=== PATIENT | male | born 1955 | race Two or more races ===

== ENCOUNTER 2018-09-28 11:57 | Inpatient (IN) | payer OTHER ==
[~2018-09-28] VITALS: Ht 167.6 cm; Wt 90.3 kg
[2018-09-28] MEDS ORDERED: SODIUM CHLORIDE 0.9% 1,000 ML IV ONE (12:27)
[2018-09-28] MEDS ORDERED: NALOXONE HCL 1 MG/ML 2ML VIAL IV ONE (12:30)
[2018-09-28 12:47] LABS: BASOPHILS % 0.4 % (0.0-2.0); EOSINOPHILS % 0.6 % (0.0-5.0); HEMATOCRIT. 37.4 % (42.0-52.0); HEMOGLOBIN. 12.6 g/dL (14.0-18.0); LYMPHOCYTES % 18.7 % (20.0-50.0); MEAN CORPUSCULAR HEMOGLOBIN 34.3 pg (28.0-32.0); MEAN CORPUSCULAR VOLUME 101.7 fL (80.0-94.0); MEAN PLATELET VOLUME 7.8 fl (7.4-10.4); MONOCYTES % 8.5 % (2.0-8.0); NEUTROPHILS % 71.8 % (40.0-76.0); PLATELET 242 x1000/uL (130-400); RED BLOOD CELL COUNT 3.68 mill/uL (4.7-6.1); RED CELL DISTRIBUTION WIDTH 13.2 % (11.6-14.6)
[2018-09-28 12:56] LABS: INR 1.1; PARTIAL THROMBOPLASTIN TIME 24.3 sec (23.4-31.0); PROTHROMBIN TIME 11.4 sec (9.1-11.1)
[2018-09-28 12:58] LABS: CHLORIDE 102 mEq/L (98-107)
[2018-09-28 13:02] LABS: ETHANOL BLOOD 23 mg/dL
[2018-09-28 13:05] LABS: LDL CHOLESTEROL 119 mg/dL (5-100)
[2018-09-28 13:18] LABS: CREATINE KINASE 2865 IU/L (39-308)
[2018-09-28 13:34] LABS: BG BASE EXCESS -3.3 mmol/L (-2.0-2.0); BG CARBOXYHEMOGLOBIN 0.8 % (0.5-1.5); BG DEOXYHEMOGLOBIN 1.8 % (0.0-5.0); BG FRACTION INSPIRED OXYGEN 36; BG HCO3 ACT 20.1 mmol/L (22.0-26.0); BG METHEMOGLOBIN 0.3 % (0.0-1.5); BG OXYGEN SATURATION 98.2 % (92.0-98.5); BG OXYHEMOGLOBIN 97.1 % (94.0-97.0); BG PCO2 31.2 mmHg (35.0-45.0); BG PH 7.426 (7.350-7.450); BG PO2 110.7 mmHg (75.0-100.0); BG SAMPLE SITE RIGHT BRACHIAL; BG TOTAL HEMOGLOBIN 12.9 g/dL (12.0-18.0); BG VENT MODE NASAL CANNULA
[2018-09-28] MEDS ORDERED: FOLIC ACID 1 MG, THIAMINE HCL 100 MG, MVI, ADULT NO.1 10 ML in DEXTROSE 5% WATER 1,000 ML IV ONE ×4 (14:15)
[2018-09-28] MEDS ORDERED: THIAMINE HCL 100MG TABLET PO NR (15:00)
[2018-09-28] MEDS ORDERED: FOLIC ACID 1 MG, MVI, ADULT NO.1 10 ML in DEXTROSE 5% WATER 1,000 ML IV NR ×3 (15:00)
[2018-09-28] MEDS ORDERED: DOCUSATE SODIUM 100MG CAPSULE PO PRN (16:15)
[2018-09-28] MEDS ORDERED: MAGNESIUM/ALUMINUM HYDROXIDE/SIMETHICONE 30ML UDC PO PRN (16:15)
[2018-09-28] MEDS ORDERED: CLONIDINE 0.1MG TABLET PO PRN (16:15)
[2018-09-28] MEDS ORDERED: ONDANSETRON HCL 4MG/2ML INJ IV PRN (16:15)
[2018-09-28 17:05] LABS: CLARITY URINE CLEAR (CLEAR); COLOR URINE YELLOW (YELLOW); KETONES URINE NEGATIVE (NEGATIVE); LEUKOCYTE ESTERASE URINE NEGATIVE (NEGATIVE); NITRITE URINE NEGATIVE (NEGATIVE); OCCULT BLOOD URINE 2+ (NEGATIVE); PH URINE 5.5 (4.5-8.0); PROTEIN URINE NEGATIVE (NEGATIVE); SPECIFIC GRAVITY URINE 1.017 (1.005-1.030); UROBILINOGEN URINE 0.2 E.U./dL (0.2-1.0)
[2018-09-28 17:12] LABS: *BENZODIAZEPINES SCREEN URINE PRESUMTIVE POSITIVE (NEGATIVE); *COCAINE SCREEN URINE NEGATIVE (NEGATIVE); METHADONE URINE SCREEN NEGATIVE (NEGATIVE); OPIATES URINE SCREEN NEGATIVE (NEGATIVE)
[2018-09-28 17:13] LABS: *AMPHETAMINES SCREEN URINE NEGATIVE (NEGATIVE); *BARBITURATES SCREEN URINE NEGATIVE (NEGATIVE); CANNABINOID URINE SCREEN NEGATIVE (NEGATIVE); PHENCYCLIDINE URINE SCREEN NEGATIVE (NEGATIVE)
[2018-09-28 22:52] VITALS: BP 119/70
[2018-09-28 23:00] VITALS: BP 119/70
[2018-09-28] MEDS: LORAZEPAM 2MG/ML CPJ IV PRN (23:45)
[2018-09-28] MEDS: ACETAMINOPHEN 325MG TABLET PO PRN (23:45)
[2018-09-29] MEDS ORDERED: QUET300T19 PO (00:30)
[2018-09-29] MEDS ORDERED: VALP250C3 PO (00:30)
[2018-09-29] MEDS ORDERED: LEVO25TA7 PO (00:30)
[2018-09-29] MEDS ORDERED: DIVA250T45 PO (00:30)
[2018-09-29] MEDS ORDERED: OMEP20CA10 PO (00:30)
[2018-09-29] MEDS ORDERED: ISOS5TAB4 PO (00:38)
[2018-09-29] MEDS ORDERED: SACU1TAB7 PO (00:38)
[2018-09-29] MEDS ORDERED: SPIR25TA6 PO (00:38)
[2018-09-29] MEDS ORDERED: TEMA30CA PO (00:38)
[2018-09-29] MEDS ORDERED: COR25 PO (00:38)
[2018-09-29] MEDS ORDERED: DEXT 5%/0.45% NACL 1000ML 1,000 ML IV SCH (03:00)
[2018-09-29] MEDS: ACETAMINOPHEN 325MG TABLET PO PRN ×2 (03:54→10:03)
[2018-09-29] MEDS: LORAZEPAM 2MG/ML CPJ IV PRN (03:54)
[2018-09-29 04:00] VITALS: BP 115/73
[2018-09-29] MEDS ORDERED: ATOR20TA65 PO ×2 (07:37)
[2018-09-29] MEDS ORDERED: OXCA150T5 PO (07:37)
[2018-09-29 08:00] VITALS: BP 101/71
[2018-09-29] MEDS ORDERED: AMLODIPINE 10MG TABLET PO SCH (09:00)
[2018-09-29 12:00] VITALS: BP 119/74
[2018-09-29] MEDS ORDERED: CARVEDILOL 25MG TABLET PO SCH (12:30)
[2018-09-29] MEDS ORDERED: OMEPRAZOLE 20MG CAPSULE EXTENDED RELEASE PO SCH (12:30)
[2018-09-29] MEDS ORDERED: OXCARBAZEPINE 300MG TABLET PO SCH (12:30)
[2018-09-29] MEDS ORDERED: VALPROIC ACID 250MG CAPSULE PO SCH (12:30)
[2018-09-29] MEDS ORDERED: DIVALPROEX SODIUM 250MG ER TABLET PO SCH (12:30)
[2018-09-29] MEDS ORDERED: LORAZEPAM 2MG/ML CPJ IV PRN (12:30)
[2018-09-29] MEDS ORDERED: QUETIAPINE FUMARATE 100MG TABLET PO SCH (13:00)
[2018-09-29 13:57] VITALS: BP 119/74
[2018-09-29] MEDS ORDERED: ATORVASTATIN CALCIUM 20MG TABLET PO SCH (21:00)
== END 2018-09-29 14:46 | disposition home or self-care (01) | DRG 557 ==
LOC: ER 12:13 → EDBEDREQTM 12:23 → 5WST 14:53 → EDBEDREQTM 14:58 → EDBEDREQSVC 14:58 → EDBEDREQ 14:58 → ENRESERV 20:03
PROVIDERS: ADMIT Hospitalist; ATTEND Hospitalist
DX: M62.82 Rhabdomyolysis (principal); G92 Toxic encephalopathy; E16.2 Hypoglycemia, unspecified; E78.00 Pure hypercholesterolemia, unspecified; E86.0 Dehydration; F10.129 Alcohol abuse with intoxication, unspecified; F31.9 Bipolar disorder, unspecified; I10 Essential (primary) hypertension
CPT/HCPCS: 36415; 36600; 71045; 80165; 80305; 80307; 80329; 82375; 82550; 82805; 82962; 83721; 83880; 84484; 86850; 86900; 93005; 96361; 96374; 99291; G0482; J2060; J2310; J3411; J3490; J7030; J7070